=== PATIENT | male | born 1985 | race African-American/Black ===

== ENCOUNTER 2025-06-13 09:56 | Emergency (ER) | payer SELFPAY ==
[~2025-06-13] VITALS: Ht 172.7 cm; Wt 104.0 kg
[2025-06-13 09:57] VITALS: O2SAT 98
[2025-06-13 11:33] LABS: BASOPHILS % 0.5 % (0.0-2.0); EOSINOPHILS % 0.5 % (0.0-5.0); HEMATOCRIT. 41.1 % (42.0-52.0); HEMOGLOBIN. 13.5 g/dL (14.0-18.0); LYMPHOCYTES % 23.0 % (20.0-50.0); MEAN PLATELET VOLUME 9.1 fl (7.4-10.4); MONOCYTES % 6.5 % (2.0-8.0); NEUTROPHILS % 69.5 % (40.0-76.0); PLATELET 221 x1000/uL (130-400); RED BLOOD CELL COUNT 4.78 mill/uL (4.7-6.1); RED CELL DISTRIBUTION WIDTH 14.1 % (11.6-14.6)
[2025-06-13 11:42] LABS: CREATININE 0.3 mg/dL (0.6-1.3); ETHANOL BLOOD < 10 mg/dL (<10); UREA NITROGEN BLOOD 9 mg/dL (9-23)
[2025-06-13] MEDS ORDERED: VALPROIC ACID 250MG CAPSULE PO ONE (11:45)
[2025-06-13] MEDS: SODIUM CHLORIDE 0.9% 1,000 ML IV ONE (12:07)
[2025-06-13] MEDS: VALPROIC ACID 250MG CAPSULE PO NR (12:09)
[2025-06-13 12:43] LABS: CLARITY URINE CLEAR (CLEAR); COLOR URINE YELLOW (YELLOW); GLUCOSE URINE NEGATIVE (NEGATIVE); KETONES URINE NEGATIVE (NEGATIVE); LEUKOCYTE ESTERASE URINE NEGATIVE (NEGATIVE); NITRITE URINE NEGATIVE (NEGATIVE); OCCULT BLOOD URINE NEGATIVE (NEGATIVE); PH URINE 5.5 (4.5-8.0); PROTEIN URINE NEGATIVE (NEGATIVE); SPECIFIC GRAVITY URINE 1.021 (1.005-1.030); UROBILINOGEN URINE 0.2 E.U./dL (0.2-1.0)
[2025-06-13] MEDS: CALCIUM GLUCONATE 1GM PREMIX 50 ML IV ONE (13:20)
[2025-06-13 13:27] LABS: *AMPHETAMINES SCREEN URINE NEGATIVE (NEGATIVE); *BARBITURATES SCREEN URINE NEGATIVE (NEGATIVE); *BENZODIAZEPINES SCREEN URINE NEGATIVE (NEGATIVE); *COCAINE SCREEN URINE NEGATIVE (NEGATIVE); CANNABINOID URINE SCREEN NEGATIVE (NEGATIVE); ECSTASY MDMA SCREEN URINE NEGATIVE (NEGATIVE); METHADONE URINE SCREEN NEGATIVE (NEGATIVE); OPIATES URINE SCREEN NEGATIVE (NEGATIVE); PHENCYCLIDINE URINE SCREEN NEGATIVE (NEGATIVE)
[2025-06-13 13:56] VITALS: BP 129/77; PULSE 100; RESP 18; TEMP 37.1; O2SAT 99
== END 2025-06-13 13:59 | disposition home or self-care (01) ==
LOC: ER 09:56
DX: R56.9 Unspecified convulsions (principal); E83.51 Hypocalcemia; E11.9 Type 2 diabetes mellitus without complications
CPT/HCPCS: 80305; 80048; 81003; 80320; 82962; 80165; 85025; 36415; 93005; 96361; 96365; 99284; J0612; J7030; G0480